=== PATIENT | male | born 1950 | race Caucasian/White ===

== ENCOUNTER 2018-06-22 05:50 | Day surgery (SDC) | payer MEDICARE ==
[~2018-06-22 05:50] MED LIST: Buffered Lidocaine 1% SYRIN* 1 ML/SYRINGE INTRADERM ONE
[2018-06-22] MEDS ORDERED: Lactated Ringers 1000 ML Bag* 1,000 ML IV SCH (06:00)
[2018-06-22] MEDS ORDERED: Succinylcholine* 20 MG/ML 10 ML VIAL ONE (06:30)
[2018-06-22] MEDS ORDERED: Atracurium* 10 MG/ML 10 ML VIAL ONE (06:30)
[2018-06-22] MEDS ORDERED: Famotidine IV* 10 MG/ML 2 ML (20 mg) ONE (06:54)
[2018-06-22] MEDS ORDERED: Midazolam* 1 MG/ML 2 ML VIAL (2 MG) ONE (06:56)
[2018-06-22] MEDS ORDERED: Dexamethasone IV* 4 MG/ML 1 ML (4 MG) ONE (06:56)
[2018-06-22] MEDS ORDERED: Propofol* 10 MG/ML 20 ML BTL ONE (06:56)
[2018-06-22] MEDS ORDERED: fentaNYL* 50 MCG/ML 2 ML VIAL (100 MCG VIAL) ONE (06:56)
[2018-06-22] MEDS ORDERED: Lidocaine 2% PF * 5 ML VIAL ONE (06:57)
[2018-06-22] MEDS ORDERED: PROCHLORPERAZINE INJ 5 MG/ML 2 ML VIAL IV PRN (07:00)
[2018-06-22] MEDS ORDERED: HYDROcodone/ACETAMIN 5-325 MG* 1 TAB PO PRN (07:00)
[2018-06-22] MEDS ORDERED: DiMENhydriNATE IV* 50 MG/ML VIAL IV PUSH PRN (07:00)
[2018-06-22] MEDS ORDERED: Acetaminophen TAB* 325 MG PO PRN (07:00)
[2018-06-22] MEDS ORDERED: Naloxone* 0.4 MG/ML 1 ML VIAL IV PRN (07:00)
[2018-06-22] MEDS ORDERED: Levalbuterol 0.63MG/3ML NEB* UNIT OF USE INH PRN (07:00)
[2018-06-22 08:20] VITALS: BP 118/65
[2018-06-22] MEDS ORDERED: Ofloxacin 0.3% (Ear Drop)* 5 ml BTL ONE (08:57)
--- NOTE | 2018-06-22 12:20 | HP ---
HISTORY AND PHYSICAL: DATE OF ADMISSION: 06/22/18 CHIEF COMPLAINT: Back pain. HISTORY OF PRESENT ILLNESS: This 68-year-old gentleman has been followed by me in the past for neck discomfort. He has recently developed significant back and leg pain that has become more problematic for him. He had a CT scan of his lumbar spine, which suggested a lumbar spinal stenosis with spondylolisthesis. He is being admitted at this time for an MRI under general anesthesia secondary to his severe claustrophobia. PAST MEDICAL HISTORY: Significant for previous history of cardiac disease, for which he is followed by Dr. Vila. He reports a history of carotid stenosis, heart murmur, and hypertension. PAST SURGICAL HISTORY: Previous surgeries include surgery for broken tibia, which included a plate of previous carotid endarterectomy, left shoulder surgery , and knee surgery. He has also had a hernia repair. CURRENT MEDICATIONS: Include: 1. Naprosyn 550 mg p.o. twice daily. 2. Aspirin 81 mg daily. 3. Bupropion/hydrochloride 150 mg daily. 4. Fenofibrate 134 mg daily. 5. Lisinopril 40 mg p.o. daily. 6. Neurontin 200 mg p.o. twice daily. 7. Prilosec 20 mg p.o. daily. 8. Vicodin 5/300 as needed. ALLERGIES: He has no medication allergies. FAMILY HISTORY: Family history was taken and did not contribute to this illness. SOCIAL HISTORY: Social history reveals him to be a current smoker and he has an occasional drink of alcohol as well as occasional marijuana use. REVIEW OF SYSTEMS: Respiratory review reveals some dyspnea on exertion and chronic obstructive pulmonary disease. The remainder of his system review was performed and did not contribute to this illness. PHYSICAL EXAMINATION VITAL SIGNS: His blood pressure was 150/90 with a pulse of 86 and respirations of 16. HEENT: Head was normocephalic with no scalp contusion or tenderness. Eyes revealed a full range of extraocular movements with pupils that are equal and reactive to light. NECK: Supple. LUNGS: Clear to auscultation. CARDIOVASCULAR: Revealed a regular rate and rhythm. ABDOMEN: Soft with normal bowel sounds and no tenderness. NEUROLOGIC: Normal. IMPRESSION: Lumbar spinal stenosis with spondylolisthesis. PLAN: He is being studied further with an MRI scan under general anesthesia. [id number]/[facility] #: [id number] [facility]ITALAnahi
== END 2018-06-22 08:40 | disposition home or self-care (01) ==
LOC: OR 05:50
PROVIDERS: ATTEND Neurological Surgery
DX: M48.061 Spinal stenosis, lumbar region without neurogenic claudication (principal); M51.36 Other intervertebral disc degeneration, lumbar region; M43.16 Spondylolisthesis, lumbar region; Z72.0 Tobacco use; I10 Essential (primary) hypertension; R01.1 Cardiac murmur, unspecified; I65.29 Occlusion and stenosis of unspecified carotid artery; J44.9 Chronic obstructive pulmonary disease, unspecified; I25.10 Atherosclerotic heart disease of native coronary artery without angina pectoris; I35.0 Nonrheumatic aortic (valve) stenosis
CPT/HCPCS: 72148; A9270-GY; J0330; J1100; J2250; J2704; J3010